=== PATIENT | male | born 1990 | race Caucasian/White ===

== ENCOUNTER 2021-10-03 22:06 | Emergency (ER) | payer OTHER, SELFPAY ==
--- NOTE | ~2021-10-03 | XR_ITS ---
EXAMINATION: XR chest ET placement EXAM DATE: 10/04/2021 01:07 INDICATION: ETT placement . TECHNIQUE: Portable AP frontal chest x-ray was obtained. There is no prior study for comparison. FINDINGS: The endotracheal tube and nasogastric tube are both in expected position. Small amount of l eft lower lobe retrocardiac opacity, probably atelectasis. There is no pneumothorax suspected. There are no pleural effusions. Normal heart size. There are no osseous abnormalities identified. IMPRESSION: 1. Tubes in position. 2. Small amount of left lower lobe airspace disease, probably atelectasis Reviewed, dictated and finalized at location A. LOGGER
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
--- NOTE | ~2021-10-03 | XR_ITS ---
EXAMINATION: XR abdomen NG/feed tube insert EXAM DATE: 10/04/2021 01:06 INDICATION: Orogastric tube placement. TECHNIQUE: Frontal projection(s) of the abdomen for interpretation. There is no prior study for marlo alcazar. FINDINGS: Feeding tube tip and side-port project over left upper quadrant, adequate. Moderate amount of colonic stool and gas. No small bowel dilation. There is no organomegaly. There are no osseous ab normalities identified. IMPRESSION: Feeding in position. Reviewed, dictated and finalized at location A. AL SERVICE WINDOW CLERK IMPRESSION: Feeding in position.
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
[2021-10-03 22:17] VITALS: BP 125/80; PULSE 83; RESP 15; TEMP 36.6; O2SAT 100
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
--- NOTE | 2021-10-03 22:58 | PC.NURSE ---
Kika, pharmacist, at Poison Control contacted d/t patient reporting he ingested 7g of meth at approx 2000. Per poison control, observe patient for symptoms for 6 hours. If symptoms do not occur, then pt can be discharge. Symptoms would be: tachypnea, abnormal movements, palpitations, seizures, hallucinations, hypertension, etc. They do not recommend UDS or imaging because they will be unreliable.
--- NOTE | 2021-10-03 23:17 | PC.NURSE ---
upon entry to room, patient states that he ate aproximately 7 grams of meth. Pt states it was in a plastic bag that was not tied. Poison control contacted per last model department supervisor. patient moved to room 13 and placed on monitor.
[2021-10-04] VITALS (8 sets, daily range): BP systolic 98–131; BP diastolic 64–81; PULSE 114–135; RESP 20; O2SAT 95–99
[2021-10-04] MEDS: SODIUM CHLORIDE 0.9% IV 1,000 ML 999 ML IV CONT ×2 (00:01→01:50)
[2021-10-04] MEDS: LORazepam INJ (*CRX) 2 MG/ML VIAL 1 MG IV PUSH ×2 (00:14)
[2021-10-04] MEDS: LORazepam INJ (*CRX) 2 MG/ML VIAL IV PUSH ×2 (00:20)
[2021-10-04] MEDS: LORazepam INJ (*CRX) 2 MG/ML VIAL 4 MG IV PUSH (00:25)
[2021-10-04 01:38] LABS: Basophils Percent Auto 0.2 % (0.2-1.2); Eosinophils Percent Auto 0.2 % (0-4.4); Hematocrit 49.2 % (42.0-52.0); Hemoglobin 16.6 g/dL (14.0-18.0); Immature Granulocyte Absolute 0.08 K/mm3 (0.00-0.031); Immature Granulocyte Percent A 0.7 % (0-0.5); Lymphocytes Absolute Auto 0.99 K/mm3 (0.9-3.2); Lymphocytes Percent Auto 8.1 % (18.3-44.2); Mean Corpuscular HGB Conc 33.7 g/dl (32-36); Mean Corpuscular Hemoglobin 31.1 pg (26-34); Mean Corpuscular Volume 92.3 fl (80-100); Mean Platelet Volume 9.3 fl (7.4-10.4); Monocytes Absolute Auto 0.5 K/mm3 (0.1-0.6); Monocytes Percent Auto 4.2 % (2.6-8.5); Neutrophils Absolute Auto 10.6 K/mm3 (1.3-6.7); Neutrophils Percent Auto 86.6 % (45.5-73.1); Platelet Count Result 316 k/mm3 (150-375); Red Blood Count 5.33 M/mm3 (4.6-6.20); Red Cell Distribution Width 13.2 % (11.5-14.5); White Blood Count 12.3 K/mm3 (4.5-10.0)
[2021-10-04 01:45] LABS: Acetaminophen < 10 ug/mL (10-30); Ethanol < 10 mg/dL (<10); Salicylate < 1.0 mg/dL (2-20)
[2021-10-04] MEDS: PROPOFOL IV EMULSION 100 ML 2.1 MG IV CONT (01:47)
[2021-10-04 01:56] LABS: Alanine Aminotransferase 23 U/L (4-50); Albumin Level 4.7 g/dL (3.5-5.1); Alkaline Phosphatase 74 U/L (38-126); Anion Gap 14 mmol/L (8-16); Aspartate Amino Transferase 36 U/L (17-59); Bilirubin,Total 0.7 mg/dL (0.2-1.3); Blood Urea Nitrogen 23 mg/dL (9-20); Calcium 8.8 mg/dL (8.4-10.2); Carbon Dioxide 21 mmol/L (22-30); Chloride 104 mmol/L (98-107); Estimated CRCL calculation 70 ml/min; Estimated Glomerular Filt Rate 60; Glucose 177 mg/dL (65-110); Potassium 4.5 mmol/L (3.4-5.0); Sodium 139 mmol/L (137-145); Troponin I < 0.012 ng/mL (0.000-0.034)
[2021-10-04 01:58] LABS: Barbiturate Screen Urine Negative (Negative); Benzodiazepines Screen Urine Negative (Negative)
[2021-10-04 02:00] LABS: Lactic Acid Reflex 5.7 mmol/L (0.7-2.1)
[2021-10-04 02:02] LABS: Cannabinoid Screen Urine Positive (Negative); Cocaine Screen Urine Negative (Negative); Methadone Screen Urine Negative (Negative); Opiate Screen Urine Positive (Negative); Phencyclidine Screen Urine Negative (Negative)
--- NOTE | 2021-10-04 02:19 | PC.NURSE ---
Upon entry into room 13 on 10/03/20, patient becoming diaphoretic and anxious. MD velez, new orders of Ativan received. Patient continued to become more anxious, diaphoretic with HR and BP raising. Orders for additional Ativan given. Patient became increasingly unstable, overall status deteriorating. MD Garza at bedside for additional Ativan orders, see MAR for times. Unable to stabilize patient, decision to intubate made at bedside per MD Garza. 100mg Propofol with 50mg Rocc for intubation. 7.5 ETT 24 @ teeth. Thomason and OG 18 placed. Upon xrays, tube advanced to 27 @ teeth. Propofol order to titrate for rass of -3 per MD Garza. patient remains on monitor, awaiting further orders and disposition.
[2021-10-04] MEDS: SODIUM CHLORIDE 0.9% IV 1,000 ML 150 ML IV CONT (02:39)
--- NOTE | 2021-10-04 03:10 | PC.NURSE ---
Poison control updated on patient condition. She suggests adding CK.
[2021-10-04 03:24] LABS: Amphetamine Screen Urine Positive (Negative)
[2021-10-04] MEDS: LORazepam INJ (*CRX) 2 MG/ML VIAL 3.5 MG IV PUSH (03:43)
--- NOTE | 2021-10-04 04:00 | PC.NURSE ---
RN called Joselinyahir Page, Mother, to notify that pt was currently in the ER and update on pt current status of being intubated, that pt stated to ER staff that he had ingested bag of meth. Pt being transported to [facility] in the ER for evaluation. Mother very tearful but verbalizes understanding of pt current condition. Mother to call [facility] later this AM to follow up on pt status.
[2021-10-04 04:07] LABS: Creatine Kinase 267 U/L (55-170)
[2021-10-04] MEDS: MIDAZOLAM HCL (*CRX) 2 MG/2 ML VIAL IV PUSH (04:26)
[2021-10-04] MEDS: PROPOFOL IV EMULSION 100 ML 18.9 MG IV CONT (04:27)
[2021-10-04 04:33] LABS: Reflex Lactic Acid Yes or No Add Lactic
== END 2021-10-04 04:58 | disposition short-term general hospital (02) ==
PROVIDERS: Emergency Provider Emergency Medicine
DX: T43.624A Poisoning by amphetamines, undetermined, initial encounter (principal); M79.641 Pain in right hand; V89.2XXA Person injured in unspecified motor-vehicle accident, traffic, initial encounter
CPT/HCPCS: 31500; 36415; 73130; 80053; 80307; 82550; 83605; 84484; 85025; 96365; 96366; 96375; 96376; 99285; J0171; J2060; J2250; J2704; J7030

== ENCOUNTER 2025-07-21 16:52 | Emergency (ER) | payer MEDICAID, SELFPAY ==
--- NOTE | ~2025-07-21 | CT_ITS ---
EXAMINATION: CT brain wo con COMPARISON: None HISTORY: AMS TECHNIQUE: Axial images were obtained through the brain without IV contrast. CT scan performed using dose optimization techniques including the following automated exposure control; adjustment of mA and/or kV; use of iterative reconstruction technique. Automatic exposure control was used to reduce radiation dose. Permanent radiation dose record is archived to PACS. FINDINGS: No acute infarct or parenchymal hemorrhage. No abnormal mass or mass effect. No midline shift. No extra-axial fluid collections. No hydrocephalus. . Mastoid air cells unremarkable. Sinuses and orbits unremarkable. No acute fracture. No significant facial or scalp soft tissue swelling evident. No radiopaque foreign body is seen. Impression: 1.No acute intracranial abnormality. Reviewed, dictated and finalized at location P. Impression: 1.No acute intracranial abnormality.
[2025-07-21 16:55] VITALS: BP 122/88; PULSE 84; RESP 16; TEMP 36.7; O2SAT 100
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
[2025-07-21 18:49] VITALS: O2SAT 100
[2025-07-21 18:51] VITALS: BP 140/95; PULSE 84; RESP 18; O2SAT 100
[2025-07-21 19:00] LABS: Hematocrit 50.7 % (42.0-52.0); Hemoglobin 17.0 g/dL (14.0-18.0); Immature Granulocyte Percent A 0.4 % (0-0.5); Lymphocytes Absolute Auto 1.03 K/mm3 (0.9-3.2); Mean Corpuscular HGB Conc 33.5 g/dl (32-36); Mean Corpuscular Hemoglobin 30.5 pg (26-34); Mean Corpuscular Volume 90.9 fl (80-100); Nucleated Red Blood Cells Absolute Auto 0.000 K/mm3 (0.0-0.012); Nucleated Red Blood Cells Perc 0.0 % (0.0-0.2); Platelet Count Result 277 k/mm3 (150-375); Red Blood Count 5.58 M/mm3 (4.6-6.20); White Blood Count 7.1 K/mm3 (4.5-10.0)
[2025-07-21 19:08] LABS: Acetaminophen < 10 ug/mL (10-30); Salicylate < 1.0 mg/dL (2-20)
[2025-07-21 19:12] LABS: Add Urine Microscopic? YES; Appearance Urine Cloudy (Clear); Glucose Urine UA Negative (Negative); Leukocyte Esterase Ur 2+ LEU/UL (Negative); Need Manual Microscopic Reviewed; Nitrate Urine Negative (Negative); Non Pathogenic Casts 0-2; Specific Grav Ur 1.016 (1.001-1.035)
[2025-07-21 19:14] LABS: INR 1.1; Prothrombin Time 13.9 Seconds (11.1-14.7)
[2025-07-21 19:15] LABS: Partial Thromboplastin Time 30.1 Seconds (22.3-36.8)
[2025-07-21 19:17] LABS: Cannabinoid Screen Urine Negative (Negative)
[2025-07-21 19:19] LABS: Alanine Aminotransferase 59 U/L (6-50); Albumin Level 4.6 g/dL (3.5-5.1); Alkaline Phosphatase 111 U/L (38-126); Anion Gap 8 mmol/L (4-12); Aspartate Amino Transferase 39 U/L (17-59); Bilirubin,Total 1.3 mg/dL (0.2-1.3); Blood Urea Nitrogen 12 mg/dL (9-20); Calcium 9.7 mg/dL (8.4-10.2); Carbon Dioxide 27 mmol/L (22-30); Chloride 100 mmol/L (98-107); Creatine Kinase 76 U/L (55-170); Estimated CRCL calculation 88 ml/min; Estimated Glomerular Filt Rate > 60; Glucose 109 mg/dL (65-110); Potassium 4.8 mmol/L (3.4-5.0); Sodium 135 mmol/L (137-145); Total Protein 8.4 g/dL (6.3-8.2)
[2025-07-21 19:26] LABS: Troponin I < 0.012 ng/mL (0.000-0.034)
[2025-07-21 19:45] LABS: Thyroid Stimulating Hormone 0.552 uIU/mL (0.465-4.680)
[2025-07-21 20:46] VITALS: BP 122/78; PULSE 96; RESP 19; TEMP 37; O2SAT 100
== END 2025-07-21 20:53 | disposition home or self-care (01) ==
PROVIDERS: Emergency Provider Student in an Organized Health Care Education/Training Program
DX: F11.129 Opioid abuse with intoxication, unspecified (principal); F15.10 Other stimulant abuse, uncomplicated; Z87.820 Personal history of traumatic brain injury
CPT/HCPCS: 36415; 70450; 80053; 80143; 80179; 80307; 81001; 82077; 82550; 83605; 84443; 84484; 85025; 85610; 85730; 87086; 99284